=== PATIENT | male | born 1995 | race Caucasian/White ===

== ENCOUNTER 2023-10-29 09:43 | Emergency (ER) | payer BC, MEDICAID, OTHER ==
[~2023-10-29] VITALS: Ht 170.2 cm; Wt 93.4 kg
[2023-10-29 09:53] VITALS: PULSE 70; RESP 20; TEMP 98.5; O2SAT 99
[2023-10-29 10:25] VITALS: BP 136/80; PULSE 80; RESP 17; TEMP 98.9; O2SAT 97
[2023-10-29] MEDS ORDERED: NACL 0.9% 1,000 ML IV SCH (10:25)
[2023-10-29] MEDS ORDERED: ONDANSETRON 4 MG/2 ML VIAL IVP ONE (10:25)
[2023-10-29] MEDS ORDERED: KETOROLAC 30 MG/ML VIAL IVP ONE ×2 (10:55→13:05)
[2023-10-29 11:06] LABS: BASOPHILS % (AUTO) 0.2 % (0.0-2.0); EOSINOPHILS % (AUTO) 0.1 % (0.0-4.0); HEMATOCRIT 47.1 % (36-52); LYMPHOCYTES # (AUTO) 1.2 K/uL (2.0-11.5); LYMPHOCYTES % (AUTO) 8.9 % (20.5-51.1); MEAN CORPUSCULAR HEMOGLOBIN 30 pg (27-31); MEAN CORPUSCULAR HGB CONC 34 g/dL (33-37); MONOCYTES # (AUTO) 0.5 K/uL (0.8-1.0); MONOCYTES % (AUTO) 3.3 % (1.7-9.3); NEUTROPHILS # (AUTO) 12.3 K/uL (1.8-7.7); NEUTROPHILS % (AUTO) 87.5 % (42.2-75.2); PLATELET COUNT (AUTO) 264 K/uL (140-450); RED BLOOD CELL COUNT(AUTO) 5.36 MIL/uL (4.20-6.10); RED CELL DISTRIBUTION WIDTH 12.5 % (11.6-13.7); WHITE BLOOD COUNT (AUTO) 14.1 K/uL (4.8-10.8)
[2023-10-29 11:24] LABS: ANION GAP 14.6 (8-16); CALCIUM 9.3 mg/dL (8.5-10.1); POTASSIUM 3.6 mmol/L (3.5-5.1)
[2023-10-29 11:33] LABS: ALBUMIN 4.1 g/dL (3.4-5.0); BILIRUBIN,DIRECT 0.1 mg/dL (0.0-0.3); TOTAL BILIRUBIN 0.6 mg/dL (0.0-1.0); TOTAL PROTEIN, SERUM 9.6 g/dL (6.4-8.2)
[2023-10-29 11:56] LABS: APPEARANCE,URINE CLEAR (CLEAR); BILIRUBIN,URINE NEGATIVE (NEGATIVE); BLOOD, URINE 1+ (NEGATIVE); COLOR,URINE YELLOW (YELLOW); LEUKOCYTE ESTERASE ,URINE NEGATIVE (NEGATIVE); NITRITE, URINE NEGATIVE (NEGATIVE); PROTEIN,URINE TRACE (NEGATIVE); UGLUCOSE NEGATIVE (NEGATIVE)
[2023-10-29 12:12] LABS: BACTERIA,URINE OCCASSIONAL /HPF (None Seen); RBC,URINE 0-5 /HPF (0-5); SQUAMOUS EPITHELIAL CELL,UR 0-3 (FEW) /LPF (0-3 (FEW)); WBC,URINE 0-5 /HPF (0-5)
[2023-10-29] MEDS ORDERED: TAMS0.4C96 PO (13:37)
[2023-10-29] MEDS ORDERED: IBUP-2213 PO (13:37)
== END 2023-10-29 14:07 | disposition home or self-care (01) ==
LOC: MED 09:43
DX: N23 Unspecified renal colic (principal); Z79.899 Other long term (current) drug therapy; Z79.1 Long term (current) use of non-steroidal anti-inflammatories (NSAID)
CPT/HCPCS: 36415; 74177; 76870; 80048; 80076; 81001; 83690; 85025; 96361; 96374; 96376; 99285; J1885; J2405; J7030; Q0092; Q9967